=== PATIENT | female | born 1955 | race Two or more races ===

== ENCOUNTER → 2018-08-03 | Emergency (ER) | payer OTHER ==
[~2018-08-03] VITALS: Ht 157.5 cm; Wt 62.1 kg
[~2018-08-03] MED LIST: ADVAIR 100-501 EACH; DILAUDID4 MG PO; NALTREXONE HCL; PENTASA500 MG PO; PROAIR HFA8.5 GM; [UNRECOGNIZED DRUG - OTHER] RC
== END | disposition left against medical advice (07) ==
LOC: ER 10:14
DX: B34.9 Viral infection, unspecified (principal)

== ENCOUNTER 2021-04-29 15:21 | Emergency (ER) | payer OTHER ==
[~2021-04-29] VITALS: Ht 157.5 cm; Wt 61.2 kg
[2021-05-05] MEDS ORDERED: CYCLOBENZAPRINE10 MG PO (00:49)
[2021-05-05] MEDS ORDERED: MOBIC15 MG PO (00:49)
== END 2021-04-29 21:34 | disposition home or self-care (01) ==
LOC: ER 15:21
DX: M94.0 Chondrocostal junction syndrome [Tietze] (principal); R07.89 Other chest pain; Z20.822 Contact with and (suspected) exposure to COVID-19

== ENCOUNTER → 2021-05-04 | Emergency (ER) | payer OTHER ==
[~2021-05-04] VITALS: Ht 157.5 cm; Wt 61.2 kg
[~2021-05-04] MED LIST changes: +CYCLOBENZAPRINE10 MG PO; +MOBIC15 MG PO
== END | disposition home or self-care (01) ==
LOC: ER 23:50
DX: M54.2 Cervicalgia (principal); M62.838 Other muscle spasm

== ENCOUNTER 2022-05-24 07:07 | Emergency (ER) | payer OTHER ==
[~2022-05-24] VITALS: Ht 160 cm; Wt 63.5 kg
== END 2022-05-24 13:01 | disposition home or self-care (01) ==
LOC: ER 07:07
DX: M54.2 Cervicalgia (principal); Z88.8 Allergy status to other drugs, medicaments and biological substances

== ENCOUNTER 2024-04-14 10:50 | Outpatient (CLI) | payer OTHER | END 2024-04-14 10:57 | disposition home or self-care (01) | LOC: SONOGRAMA 10:50 | DX: N20.0 Calculus of kidney (principal) ==

== ENCOUNTER → 2024-05-01 | Emergency (ER) | payer OTHER ==
[~2024-05-01] VITALS: Ht 154.9 cm; Wt 65.8 kg
[~2024-05-01] MED LIST changes: +TIROSINT13 MCG; +[UNRECOGNIZED DRUG - OTHER]
== END | disposition left against medical advice (07) ==
LOC: ER 22:35
DX: Z53.21 Procedure and treatment not carried out due to patient leaving prior to being seen by health care provider (principal)

== ENCOUNTER 2024-05-05 00:51 | Emergency (ER) | payer OTHER ==
[~2024-05-05] VITALS: Ht 154.9 cm; Wt 65.8 kg
[2024-05-05] MEDS ORDERED: RINGERS SOLUTION,LACTATED 1,000 ML IV STA (02:16)
[2024-05-05 04:15] LABS: URINE APPEARANCE Clear; URINE BILIRRUBIN Negative (NEGATIVE); URINE BLOOD Negative; URINE COLOR Yellow; URINE GLUCOSE Negative (NEGATIVE); URINE KETONE Negative (NEGATIVE); URINE LEUKOCYTE Negative; URINE NITRATE Negative; URINE PROTEIN Negative (NEGATIVE); URINE UROBILINOGEN 0.2 E.U./dl
[2024-05-05 04:19] LABS: URINE EPITHELIAL CELLS 1.5 uL (0.0-38.8)
[2024-05-05 04:23] LABS: URINE BACTERIA 1.2 uL (0.0-1933); URINE RBC 1.5 uL (0.0-20.8)
[2024-05-05] MEDS ORDERED: HYOSCYAMINE SULFATE 0.125 MG TAB.SUBL SL STA (05:05)
[2024-05-05] MEDS ORDERED: FAMOtidine 10 MG/ML (4ML VIAL) IV PUSH STA (05:06)
[2024-05-05] MEDS ORDERED: KETOROLAC TROMETHAMINE 30 MG VIAL IV STA (06:03)
[2024-05-05 06:12] LABS: HEMATOCRIT 33.9 % (36.0-45.00); HEMOGLOBIN 11.1 g/dL (12.0-15.00); MEAN CELL VOLUME 85.3 fL (80.00-100.00); MEAN CORPUSCULAR HGB CONC 32.8 g/dl (32.0-36.0); PLATELET COUNT 271 K/uL (150-450); RED BLOOD COUNT 3.97 M/uL (4.00-6.00); RED CELL DISTRIBUTION WIDTH 14.1 % (11.5-14.5)
[2024-05-05 06:34] LABS: INR 0.98; PROTHROMBIN TIME 10.7 SECONDS (9.0-11.5)
[2024-05-05 06:40] LABS: ALBUMIN 3.6 gm/dL (3.4-5.0); BILIRUBIN TOTAL 0.28 mg/dL (0.3-1.2); CALCIUM 9.2 mg/dL (8.5-10.1); CREATININE SERUM 0.67 mg/dL (0.55-1.02); GFR 88.06; GLOBULINA 3.7 G/DL (2.4-3.5); POTASSIUM 3.97 mEq/L (3.5-5.1); TOTAL PROTEIN 7.3 gm/dL (6.4-8.2)
== END 2024-05-05 07:53 | disposition home or self-care (01) ==
LOC: ER 00:53
DX: R53.81 Other malaise (principal); R30.0 Dysuria
CPT/HCPCS: 36415; 96372; 99283; J1885

== ENCOUNTER 2024-05-08 16:36 | Emergency (ER) | payer OTHER ==
[~2024-05-08] VITALS: Ht 152.4 cm; Wt 66.7 kg
[2024-05-08] MEDS ORDERED: BENZONATATE 100 MG CAPSULE PO ONE (17:15)
[2024-05-08] MEDS ORDERED: 0.9 % SODIUM CHLORIDE 1,000 ML IV ONE (17:15)
[2024-05-08] MEDS ORDERED: MORPHINE SULFATE 4 MG/ML VIAL IV ONE ×2 (17:15→21:15)
[2024-05-08] MEDS ORDERED: FAMOtidine 10 MG/ML (4ML VIAL) IV ONE (17:15)
[2024-05-08 17:49] LABS: HEMATOCRIT 33.7 % (36.0-45.00); HEMOGLOBIN 11.1 g/dL (12.0-15.00); MEAN CELL VOLUME 83.8 fL (80.00-100.00); MEAN CORPUSCULAR HEMOGLOBIN 27.6 pg (27.00-32.0); PLATELET COUNT 250 K/uL (150-450); RED BLOOD COUNT 4.03 M/uL (4.00-6.00); RED CELL DISTRIBUTION WIDTH 14.4 % (11.5-14.5)
[2024-05-08 18:09] LABS: ALBUMIN 3.8 gm/dL (3.4-5.0); BILIRUBIN TOTAL 0.19 mg/dL (0.3-1.2); CREATININE SERUM 0.82 mg/dL (0.55-1.02); GFR 69.75; GLOBULINA 3.8 G/DL (2.4-3.5); POTASSIUM 3.83 mEq/L (3.5-5.1); TOTAL PROTEIN 7.6 gm/dL (6.4-8.2)
[2024-05-08 18:40] LABS: PH,URINE 6.5 (5.0-8.0); URINE APPEARANCE Clear; URINE BILIRRUBIN Negative (NEGATIVE); URINE BLOOD Negative; URINE COLOR Yellow; URINE GLUCOSE Negative (NEGATIVE); URINE KETONE Negative (NEGATIVE); URINE LEUKOCYTE Negative; URINE NITRATE Negative; URINE PROTEIN Negative (NEGATIVE); URINE UROBILINOGEN 0.2 E.U./dl
[2024-05-08 18:41] LABS: URINE BACTERIA 0 uL (0.0-1933); URINE RBC 2.5 uL (0.0-20.8); URINE WBC 0.1 uL (0.0-23.2)
[2024-05-08] MEDS ORDERED: LEVALBUTEROL HCL 0.63 MG/3 ML SOLUTION IH ONE (19:15)
== END 2024-05-08 22:39 | disposition home or self-care (01) ==
LOC: ER 16:36
PROVIDERS: General Practice
DX: R07.9 Chest pain, unspecified (principal); Z88.2 Allergy status to sulfonamides
CPT/HCPCS: 36415; 93005; 94640; 96365; 96366; 99282; J2270 ×2; J3490; J7030

== ENCOUNTER 2024-07-30 21:03 | Emergency (ER) | payer OTHER ==
[~2024-07-30] VITALS: Ht 154.9 cm; Wt 72.6 kg
[2024-07-30 21:52] VITALS: BP 127/82; O2SAT 100
[2024-07-30] MEDS ORDERED: TAMSULOSIN HCL 0.4 MG CAP PO ONE (22:15)
[2024-07-30] MEDS ORDERED: 0.9 % SODIUM CHLORIDE 1,000 ML IV ONE (22:15)
[2024-07-30] MEDS ORDERED: CEFTRIAXONE SODIUM 1,000 MG VIAL IV ONE (22:15)
[2024-07-30] MEDS ORDERED: FAMOtidine 10 MG/ML (4ML VIAL) IV ONE (22:15)
[2024-07-30] MEDS ORDERED: DICYCLOMINE HCL 20 MG TABLET PO ONE (22:15)
[2024-07-30] MEDS ORDERED: KETOROLAC TROMETHAMINE 60 MG VIAL IM ONE (22:15)
[2024-07-30 23:15] LABS: HEMATOCRIT 38.5 % (36.0-45.00); HEMOGLOBIN 12.6 g/dL (12.0-15.00); MEAN CORPUSCULAR HEMOGLOBIN 28.1 pg (27.00-32.0); MEAN CORPUSCULAR HGB CONC 32.7 g/dl (32.0-36.0); PLATELET COUNT 318 K/uL (150-450); RED BLOOD COUNT 4.47 M/uL (4.00-6.00); RED CELL DISTRIBUTION WIDTH 14.3 % (11.5-14.5)
[2024-07-30] MEDS ORDERED: MEPERIDINE HCL/PF 25 MG/ML VIAL IM ONE (23:45)
[2024-07-31] MEDS ORDERED: PROBIOTIC1 EAC2 PO (00:07)
[2024-07-31] MEDS ORDERED: DICY20TA PO (00:07)
[2024-07-31] MEDS ORDERED: PEPCID AC20 MG PO (00:07)
[2024-07-31] MEDS ORDERED: CIPRO500 MG PO (00:07)
[2024-07-31] MEDS ORDERED: NORFLEX100MG PO (00:07)
[2024-07-31] MEDS ORDERED: TAMS0.4C PO (00:07)
[2024-07-31 01:15] LABS: URINE APPEARANCE Clear; URINE BILIRRUBIN Negative (NEGATIVE); URINE BLOOD Negative; URINE COLOR Yellow; URINE GLUCOSE Negative (NEGATIVE); URINE KETONE Negative (NEGATIVE); URINE LEUKOCYTE Negative; URINE NITRATE Negative; URINE PROTEIN Negative (NEGATIVE); URINE UROBILINOGEN 0.2 E.U./dl
[2024-07-31 01:22] LABS: URINE BACTERIA 1.2 uL (0.0-1933); URINE EPITHELIAL CELLS 0.6 uL (0.0-38.8); URINE RBC 1.9 uL (0.0-20.8); URINE WBC 0 uL (0.0-23.2)
== END 2024-07-31 00:32 | disposition home or self-care (01) ==
LOC: ER 21:03
PROVIDERS: General Practice
DX: R10.9 Unspecified abdominal pain (principal); Z88.2 Allergy status to sulfonamides; Z88.8 Allergy status to other drugs, medicaments and biological substances
CPT/HCPCS: 36415; 74240; 96365; 96372; 99283; J0696; J1885; J3490 ×2; J7030

== ENCOUNTER → 2024-08-02 | Emergency (ER) | payer OTHER ==
[~2024-08-02] VITALS: Ht 152.4 cm; Wt 66.7 kg
[~2024-08-02] MED LIST changes: +CIPRO500 MG PO; +DICY20TA PO; +DOLOGESIC-DF 51 EACH PO; +NORFLEX100MG PO; +PEPCID AC20 MG PO; +PROBIOTIC1 EAC2 PO; +TAMS0.4C PO; +ZITHROMAX500 MG PO; +ZYNCOF 20-400120 ML PO
== END | disposition left against medical advice (07) ==
LOC: ER 20:37
DX: Z53.21 Procedure and treatment not carried out due to patient leaving prior to being seen by health care provider (principal)

== ENCOUNTER 2024-08-04 22:16 | Emergency (ER) | payer OTHER ==
[~2024-08-04] VITALS: Ht 152.4 cm; Wt 65.8 kg
[~2024-08-04 22:16] MED LIST changes: -DOLOGESIC-DF 51 EACH PO; -ZITHROMAX500 MG PO; -ZYNCOF 20-400120 ML PO
[2024-08-05] MEDS ORDERED: GUAIFENESIN 200 MG/10 ML BLIST.PACK PO STA (00:49)
[2024-08-05] MEDS ORDERED: ACETAMINOPHEN 500 MG GEL..CAP PO STA (00:50)
[2024-08-05 03:11] LABS: HEMOGLOBIN 12.6 g/dL (12.0-15.00); MEAN CELL VOLUME 85.4 fL (80.00-100.00); MEAN CORPUSCULAR HEMOGLOBIN 28.2 pg (27.00-32.0); MEAN CORPUSCULAR HGB CONC 33.1 g/dl (32.0-36.0); PLATELET COUNT 287 K/uL (150-450); RED BLOOD COUNT 4.46 M/uL (4.00-6.00); RED CELL DISTRIBUTION WIDTH 13.8 % (11.5-14.5)
[2024-08-05] MEDS ORDERED: DOLOGESIC-DF 51 EACH PO (05:14)
[2024-08-05] MEDS ORDERED: ZITHROMAX500 MG PO (05:14)
[2024-08-05] MEDS ORDERED: ZYNCOF 20-400120 ML PO (05:14)
== END 2024-08-05 05:30 | disposition home or self-care (01) ==
LOC: ER 22:19
PROVIDERS: General Practice
DX: S80.811A Abrasion, right lower leg, initial encounter (principal); X58.XXXA Exposure to other specified factors, initial encounter; Y93.52 Activity, horseback riding; Y92.89 Other specified places as the place of occurrence of the external cause; Y99.9 Unspecified external cause status; R53.81 Other malaise; Z88.2 Allergy status to sulfonamides; Z88.8 Allergy status to other drugs, medicaments and biological substances; Z87.09 Personal history of other diseases of the respiratory system; Z91.040 Latex allergy status; Z20.822 Contact with and (suspected) exposure to COVID-19

== ENCOUNTER 2024-08-16 13:56 | Emergency (ER) | payer OTHER ==
[~2024-08-16] VITALS: Ht 154.9 cm; Wt 65.8 kg
[~2024-08-16 13:56] MED LIST changes: +DOLOGESIC-DF 51 EACH PO; +ZITHROMAX500 MG PO; +ZYNCOF 20-400120 ML PO
[2024-08-16 14:21] VITALS: BP 129/85; O2SAT 98
[2024-08-16] MEDS ORDERED: IPRATROPIUM BROMIDE 0.5 MG/2.5 ML AMPUL.NEB IH ONE ×2 (16:45→17:49)
[2024-08-16] MEDS ORDERED: LEVALBUTEROL HCL 1.25 MG/3 ML SOLUTION IH ONE ×2 (16:45→17:49)
[2024-08-16 18:06] LABS: HEMATOCRIT 35.5 % (36.0-45.00); HEMOGLOBIN 11.8 g/dL (12.0-15.00); MEAN CELL VOLUME 83.7 fL (80.00-100.00); MEAN CORPUSCULAR HEMOGLOBIN 27.8 pg (27.00-32.0); MEAN CORPUSCULAR HGB CONC 33.2 g/dl (32.0-36.0); PLATELET COUNT 231 K/uL (150-450); RED BLOOD COUNT 4.24 M/uL (4.00-6.00); RED CELL DISTRIBUTION WIDTH 14.1 % (11.5-14.5)
[2024-08-16 18:08] LABS: ALBUMIN 3.9 gm/dL (3.4-5.0); BILIRUBIN TOTAL 0.25 mg/dL (0.3-1.2); CALCIUM 9.2 mg/dL (8.5-10.1); CREATININE SERUM 0.73 mg/dL (0.55-1.02); GFR 79.76; GLOBULINA 3.7 G/DL (2.4-3.5); POTASSIUM 4.17 mEq/L (3.5-5.1); TOTAL PROTEIN 7.6 gm/dL (6.4-8.2)
[2024-08-16] MEDS ORDERED: CARISOPRODOL 350 MG TABLET PO ONE (18:15)
[2024-08-16] MEDS ORDERED: LEVALBUTER0.63 MG/3 IH (18:25)
[2024-08-16] MEDS ORDERED: SINGULAIR10 MG PO (18:25)
[2024-08-16] MEDS ORDERED: SOMA250 MG PO (18:25)
[2024-08-16] MEDS ORDERED: BENZONATATE200 M1 PO (18:25)
[2024-08-16] MEDS ORDERED: MEPERIDINE HCL 25 MG/ML AMPUL IM ONE (18:30)
[2024-08-16] MEDS ORDERED: BENZONATATE 100 MG CAPSULE PO ONE (18:30)
== END 2024-08-16 19:26 | disposition home or self-care (01) ==
LOC: ER 13:58
PROVIDERS: General Practice
DX: R05.9 Cough, unspecified (principal); Z88.2 Allergy status to sulfonamides; Z91.040 Latex allergy status
CPT/HCPCS: 36415; 94640; 96372; 99284; J3490